=== PATIENT | female | born 1985 | race African-American/Black ===

== ENCOUNTER 2016-07-25 15:44 | Emergency (ER) ==
[2016-07-25] MEDS ORDERED: TORADOL IM ONE (17:17)
[2016-07-25] MEDS ORDERED: DECADRON IM ONE (17:19)
--- NOTE | 2016-07-25 17:20 | PROVIDER DOCUMENTATION ---
HPI-EENT General - General Chief Complaint: Earache Stated Complaint: EARACHE Time Seen by Provider: 07/25/16 17:10 Source: patient Allergies/Adverse Reactions: Patient Allergies Allergy/AdvReac Type Severity Reaction Status Date / Time No Known Allergies Allergy Verified 05/31/16 19:47 Home Medications: Home Medication List Medication Instructions Recorded Confirmed Last Taken Type Diclofenac Sodium [Voltaren] 75 mg PO Q12H PRN #14 tablet. 07/25/16 Unknown Rx - History of Present Illness-EENT General Nature of Presenting Problem: PATIENT C/O LEFT EARACHE X2 WEEKS. EENT Location: reports: ear (L) Quality of Pain: reports: aching, dull Severity: reports: moderate Onset/Duration: reports: other (2 WEEKS AGO) Timing: reports: still present, getting worse Prearrival Treatment: Initiated no prearrival treatment Associated Symptoms: denies: denies symptoms, change in hearing, cough, drooling , DZ, ear drainage, facial pain/swelling, fever, FOOTE, malaise, MS, nasal congestion/drainage, [employer], poor fluid intake, poor solids intake, sinus infection , sore throat, SW, tooth pain, voice change, other Similar Symptoms Previously?: No Recently seen or treated by another doctor?: No - Ears Ear Problem Symptoms: reports: earache Ear Problem Context: reports: none - Throat/Dental Throat/Dental Problem Symptoms: reports: none Review of Systems - Adult - REVIEW OF SYSTEMS - ADULT Constitutional: reports: no symptoms reported Eyes: reports: no symptoms reported Ears, Nose, Mouth & Throat: reports: see HPI Cardiovascular: reports: no symptoms reported Respiratory: reports: no symptoms reported Gastrointestinal: reports: no symptoms reported Genitourinary: reports: no symptoms reported Musculoskeletal: reports: no symptoms reported Integumentary: reports: no symptoms reported Neurological: reports: no symptoms reported Psychiatric: reports: no symptoms reported Endocrine: reports: no symptoms reported Hematologic/Lymphatic: reports: no symptoms reported Allergic/Immunologic: reports: no symptoms reported Past History - Adult - PAST MEDICAL HISTORY-ADULT Review of Records: reports: Nursing Assessment Review, Medications Reviewed, Social history reviewed & non-contributory. Major Childhood Illnesses: reports: denies history Cardiovascular: reports: denies history Respiratory: reports: denies history Gastrointestinal: reports: denies history Obstetrical/Gynecological: reports: denies history Genitourinary: reports: denies history Musculoskeletal: reports: denies history Neurological: reports: denies history Endocrine/Immune: reports: denies history Other Conditions: reports: denies history - PRIOR SURGERIES/PROCEDURES Surgical/Procedure History: reports: orthopedic (extremity) (left knee, cyst i&D ) - PRIOR HOSPITALIZATIONS Prior Hospitalizations: reports: none - IMMUNIZATION STATUS Childhood Immunizations: See Nurse Assessment Flu Vaccine: See Nurse Assessment - FAMILY HISTORY Family History: reviewed, not pertinent Physical Exam- EENT - Physical Exam EENT Initial Vital Signs Reviewed: Yes General Appearance: appears well, alert, no apparent distress Eye Exam: bilateral eye: normal inspection Ear Exam: left ear: other (SPECIFIC POINT TENDERNESS TO TMJ AREA), bilateral ear : auricle normal, canal normal, TM normal Neck: non-tender Respiratory: lungs clear Cardiovascular: regular rate, rhythm Lymphatic: no adenopathy Extremity: normal range of motion Integumentary: normal color, normal turgor, warm/dry Neurologic: grossly normal Psych/Mental Status: normal mood/affect, normal thought content, normal thought process, oriented x 3 Departure - Departure Time of Disposition Order: 17:32 DIAGNOSIS: Temporomandibular joint (TMJ) pain Qualifiers: Laterality: left Qualified Code(s): M26.622 - Arthralgia of left temporomandibular joint Disposition: HOME 01 Certified Medical Emergency: Emergent Condition: Good Prescriptions: Diclofenac Sodium [Voltaren] 75 mg PO Q12H PRN #14 tablet.dr MEGHAN Reason: Pain Referrals: Kunal Shukla MD [STAFF PHYSICIAN] - (FOLLOW UP IF SYMPTOMS ARE NOT IMPROVED IN 7 DAYS. ) Forms: Return to School/Parent Work Instructions: Diclofenac sodium extended-release tablets, Temporomandibular Joint Syndrome Attestation - Physician/ NICKY Attestation Patient care was provided by Advanced Practice Provider:: Yes Advanced Practice Provider:: Javier Fermin Advanced Practice Provider documentation review:: The Mid-level provider documentation, treatment plan and medical decision making was reviewed by the physician who agrees with all treatment and medical decision making by the MLP.
[2016-07-25 18:02] VITALS: BP 117/81
== END 2016-07-25 18:02 | disposition home or self-care (01) ==
LOC: P.ED 15:44
DX: M26.622 Arthralgia of left temporomandibular joint (principal); H92.02 Otalgia, left ear
CPT/HCPCS: J1885